=== PATIENT | female | born 2000 | race Two or more races ===

== ENCOUNTER 2021-07-23 14:07 | Emergency (ER) | payer OTHER ==
[~2021-07-23] VITALS: Ht 160 cm; Wt 54.4 kg
[2021-07-23] MEDS ORDERED: DECADRON4 MG PO (18:10)
[2021-07-23] MEDS ORDERED: AMOXICILLIN875 MG PO (18:10)
== END 2021-07-23 18:22 | disposition home or self-care (01) ==
LOC: ER 14:07 → EMR PED 15:36 → ER 15:36 → EMR PED 18:22
DX: J02.9 Acute pharyngitis, unspecified (principal)